=== PATIENT | female | born 1985 | race Caucasian/White ===

== ENCOUNTER 2018-01-12 08:17 | Emergency (ER) | payer BC, MEDICAID ==
[~2018-01-12] VITALS: Ht 172.7 cm; Wt 72.0 kg
[~2018-01-12 08:17] MED LIST: PANT-47 PO
[2018-01-12 08:21] VITALS: BP 108/71
== END 2018-01-12 09:33 | disposition home or self-care (01) ==
LOC: ER 08:17
DX: S90.31XA Contusion of right foot, initial encounter (principal); Z79.899 Other long term (current) drug therapy; W50.0XXA Accidental hit or strike by another person, initial encounter; Y93.75 Activity, martial arts; Y92.89 Other specified places as the place of occurrence of the external cause; Y99.8 Other external cause status
CPT/HCPCS: 73610; 73630; 99284